=== PATIENT | male | born 1960 | race Caucasian/White ===

== ENCOUNTER → 2024-03-22 11:11 | Outpatient (REF) | payer BC, SELFPAY | LOC: HWRAD 11:11 | PROVIDERS: ATTENDING PHYSICIAN Family Medicine | DX: M25.561 Pain in right knee (principal) | CPT/HCPCS: 73562; 73565 ==

== ENCOUNTER → 2025-06-14 08:34 | Outpatient (REF) | payer BC, SELFPAY ==
[2025-06-14 10:49] LABS: TSH 0.11 uIU/ml (0.47-4.68)
== END ==
LOC: REG 08:34
PROVIDERS: ATTENDING PHYSICIAN Family Medicine
DX: E03.9 Hypothyroidism, unspecified (principal)
CPT/HCPCS: 36415; 84443

== ENCOUNTER → 2025-07-29 08:30 | Outpatient (REF) | payer BC, SELFPAY ==
[2025-07-29 10:40] LABS: TSH 2.57 uIU/ml (0.47-4.68)
== END ==
LOC: REG 08:30
PROVIDERS: ATTENDING PHYSICIAN Family Medicine
DX: E03.9 Hypothyroidism, unspecified (principal)
CPT/HCPCS: 36415; 84443